=== PATIENT | female | born 1960 | race Caucasian/White ===

== ENCOUNTER 2019-04-19 13:50 | Inpatient (IN) | payer OTHER ==
--- NOTE | 2019-04-19 13:53 | PDOC ---
History of Present Illness - General Chief Complaint: Bite Stated Complaint: DOG BITE Time Seen by Provider: 04/19/19 13:52 - History of Present Illness Initial Comments: 04/19/19 14:23 58f with h/o hypercholesterolemia presents following dog bite to the L 2nd and 3rd finger last night at 6pm. She spread neosporin over the wound ad went to sleep but this morning the wound looked worse over the 3rd finger and she's unable to bend her finger. There are small puncture wounds over the dorsal and ventral surfaces. The 3rd finger is tense and swollen with limited mobility. Patient denies fever, chills, rashes or pruritus Past History - Past Medical History Allergies/Adverse Reactions: Allergies Allergy/AdvReac Type Severity Reaction Status Date / Time No Known Allergies Allergy Verified 04/19/19 13:51 Home Medications: Ambulatory Orders Atorvastatin Ca [Lipitor] 10 mg PO HS 04/19/19 Anemia: No Asthma: No Cancer: No Cardiac Disorders: Yes (MVP) CVA: No COPD: No CHF: No Dementia: No Diabetes: No GI Disorders: No Disorders: No HTN: No Hypercholesterolemia: Yes Liver Disease: No Seizures: No Thyroid Disease: No - Surgical History Abdominal Surgery: No Appendectomy: No Cardiac Surgery: No Cholecystectomy: No Lung Surgery: No Neurologic Surgery: No Orthopedic Surgery: No - Suicide/Smoking/Psychosocial Hx Smoking History: Never smoked Have you smoked in the past 12 months: No Hx Alcohol Use: Yes Drug/Substance Use Hx: No Substance Use Type: Alcohol Hx Substance Use Treatment: No Review of Systems - Review of Systems Able to Perform ROS?: Yes Is the patient limited Polish proficient: No Constitutional: No: Symptoms Reported HEENTM: No: Symptoms Reported Respiratory: No: Symptoms reported Cardiac (ROS): No: Symptoms Reported ABD/GI: No: Symptoms Reported : No: Symptoms Reported Musculoskeletal: No: Symptoms Reported Integumentary: Yes: See HPI Neurological: No: Symptoms reported All Other Systems: Reviewed and Negative *Physical Exam - Physical Exam General Appearance: Yes: Nourished, Appropriately Dressed, Apparent Distress Respiratory/Chest: positive: Lungs Clear, Normal Breath Sounds. negative: Chest Tender, Respiratory Distress Cardiovascular: positive: Regular Rhythm, Regular Rate, S1, S2 Gastrointestinal/Abdominal: positive: Normal Bowel Sounds, Flat, Soft. negative : Tender Extremity: positive: Other (swollen, hot and eryhtmatous finger with puncture wounds, passive tenderness along the flexor tendon on entension. ) ED Treatment Course - LABORATORY CBC & Chemistry Diagram: 04/19/19 14:20 04/19/19 14:20 Medical Decision Making - Medical Decision Making 04/19/19 15:13 Patient has likely infectious tenosynovitis secondary to dog bite from yesterday. Will start IV Unasyn -Vanco and get hand surgery consult. No Osteomyelitis on xray appreciated. 04/19/19 18:31 Ortho will see and follow the patient. Patient admitted to hospitalist. *DC/Admit/Observation/Transfer Diagnosis at time of Disposition: Infectious tenosynovitis - Discharge Dispostion Condition at time of disposition: Stable Decision to Admit order: Yes - Referrals - Patient Instructions - Post Discharge Activity
[2019-04-19] MEDS ORDERED: AMPICILLIN NA/SULBACTAM NA 3 GM in SODIUM CHLORIDE 100 ML IVPB ONE (14:08)
[2019-04-19] MEDS ORDERED: VANCOMYCIN 1 GM in D5W (PRE-DOCKED) 1,000 MG/250 ML IVPB ONE (14:19)
[2019-04-19] MEDS ORDERED: VANCOMYCIN 1,000 MG VIAL (RESTRICTED TO ID ONLY) ONE (14:26)
--- NOTE | 2019-04-19 14:34 | PDOC ---
Attending Attestation - Resident Resident Name: David Molina - ED Attending Attestation I have performed the following: I have examined & evaluated the patient, The case was reviewed & discussed with the resident, I agree w/resident's findings & plan - HPI HPI: 04/19/19 14:30 58-year-old female with history of high cholesterol presents with right middle finger pain and swelling status post dog bite last night. Patient's own dog bit her right third and fourth digits, over the course of the night developed increasing pain and swelling to her third digit, presents for evaluation. Difficulty ranging her finger joints secondary to pain and swelling, no fevers or chills or sensory loss. - Physicial Exam PE: 04/19/19 14:31 Vital signs normal, temperature 90.9 Right hand: Sealed abrasion/puncture nix on both the dorsal and palmar aspect of the right third digit over the distal middle phalanx, the palmar aspect has slight purulent drainage. There are circumferential swelling around the entire right middle finger, there is tenderness along the flexor tendon, there is pain with passive extension. Otherwise brisk cap refill, sensory intact. Right fourth digit has abrasions without evidence of swelling or infection. - Medical Decision Making 04/19/19 14:32 58-year-old female status post dog bite to right third digit with signs and symptoms concerning for deep tissue/flexor tendon infection. No systemic signs or evidence of SIRS, neurovascularly intact at this time. will need hand consult for evaluation of possible debridement IV antibiotics check labs for admission xray to r/o foreign body tetanus utd as of 3 years ago. 04/19/19 15:47 on my prelim review, sts on xray without FB. labs wnl. received iv abx. Dr. Mane consulted for Hand, will see patient
[2019-04-19 14:52] LABS: MCH 31.3 pg (25.7-33.7)
[2019-04-19 14:56] LABS: BASO % 0.5 % (0-2.0); EOS % 0.3 % (0-4.5); HEMATOCRIT 40.3 % (32.4-45.2); HEMOGLOBIN 13.6 GM/dl (10.7-15.3); LYMPH % 22.1 % (8-40); MCHC 33.9 g/dl (32.0-36.0); MEAN CELL VOLUME 92.3 fl (80-96); MEAN PLT VOLUME 8.2 fl (7.5-11.1); MONO % 6.4 % (3.8-10.2); NEUT % 70.7 % (42.8-82.8); PLATELET COUNT 356 K/MM3 (134-434); RBC 4.37 M/mm3 (3.60-5.2); RDW 11.5 % (11.6-15.6); WHITE BLOOD COUNT 9.4 K/mm3 (4.0-10.8)
[2019-04-19 14:59] LABS: ALBUMIN 4.2 g/dl (3.4-5.0); BILIRUBIN,TOTAL 1.1 mg/dl (0.2-1); CALCIUM 9.3 mg/dl (8.5-10); CREATININE 0.6 mg/dl (0.55-1.3); POTASSIUM 3.8 mmol/L (3.5-5.1); TOT PROT 7.2 g/dl (6.4-8.2)
[2019-04-19] MEDS ORDERED: AMPICILLIN NA/SULBACTAM NA 3 GM VIAL ONE (15:02)
[2019-04-19] MEDS ORDERED: morphine CARPU-JECT 4 MG/1 ML DISP.SYRIN IVPUSH ONE (16:23)
[2019-04-19] MEDS ORDERED: morphine SULFATE 4 MG/ML VIAL ONE (16:33)
[2019-04-19] MEDS ORDERED: IBUPROFEN 400 MG TABLET (FP) PO PRN (16:47)
--- NOTE | 2019-04-19 16:55 | HP ---
Admitting History and Physical - Primary Care Physician PCP: Emily Penn - Admission Chief Complaint: Rt Hand pain and swelling History of Present Illness: 58 yrs old f healthy no significant PMH except Hypercholasterolemia today present with Left Hand pain swelling , yesterday she was bitten by a dog L 2nd and 3rd finger , self treated with Neosporin Ont today am noticed pain , swelling over the wound , unable do passive flexion due to pain and swelling . There are small puncture wounds over the dorsal and ventral surfaces. The 3rd finger is tense and swollen with limited mobility. Patient denies fever, chills , rashes or pruritus, in the Ed received IV unasyn and vancomycin , hand surgery is consulted admitted for IV abx and further management. History Source: Patient - Past Medical History Cardiovascular: Yes: Hyperlipdemia ...LMP: 12/30/11 - Smoking History Smoking history: Never smoked Have you smoked in the past 12 months: No - Alcohol/Substance Use Hx Alcohol Use: Yes Home Medications - Allergies Allergies/Adverse Reactions: Allergies Allergy/AdvReac Type Severity Reaction Status Date / Time No Known Allergies Allergy Verified 04/19/19 13:51 - Home Medications Home Medications: Ambulatory Orders Atorvastatin Ca [Lipitor] 10 mg PO HS 04/19/19 Family Disease History - Family Disease History Family History: Unremarkable Review of Systems - Review of Systems Constitutional: denies: Chills, Diaphoresis, Fever, Lethargy Eyes: denies: Blind Spots, Blurred Vision HENT: denies: Difficult Swallowing, Ear Discharge Neck: denies: Decreased ROM, Lumps, Pain on Movement Cardiovascular: denies: Chest Pain, Edema, Palpitations Respiratory: denies: Cough, Exercise Intolerance Gastrointestinal: denies: Abdominal Pain, Bloating Genitourinary: denies: Burning, Discharge, Dysuria Integumentary: reports: Blister, Change in Color (L 2 and 3rd Finger) Neurological: denies: Change in LOC, Change in Speech, Confusion Hematology/Lymphatic: denies: Easily Bruised, Excessive Bleeding Psychiatric: denies: Altered Sleep Pattern, Anxiety, Depression Physical Examination Vital Signs: Vital Signs Temperature 99 F 04/19/19 13:51 Pulse Rate 89 04/19/19 13:51 Respiratory Rate 16 04/19/19 13:51 Blood Pressure 137/93 04/19/19 13:51 O2 Sat by Pulse Oximetry (%) 99 04/19/19 13:51 Young F not in distress HEENT: Mm moist no anemia NECK; No JVd No bruit CHEST: CTA B/L CVS; s1S2 R no m/g/r ABD: No distention, non tender Bs + EXT: No edema feet, no calf tenderness Rt UE:In dressing As per Hand surgery note: small superficial wound approximately 5 mm along the volar aspect of the ring finger along the middle phalanx. There is mild swelling here but no surrounding erythema. There is a approximately 1 cm wound along the volar aspect of the long finger just proximal to the DIP joint. There is moderate swelling here and surrounding erythema extending from the distal phalanx to the proximal phalanx. 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 BMP, Hand surgery consult is called,Rt hand elevation, NSAID for pain , tylenol for fever. Code(s): L03.114 - CELLULITIS OF LEFT UPPER LIMB (2) Dog bite of hand Code(s): S61.459A - OPEN BITE OF UNSPECIFIED HAND, INITIAL ENCOUNTER; W54.0XXA - BITTEN BY DOG, INITIAL ENCOUNTER Qualifiers: Encounter type: initial encounter (3) Hypercholesteremia Assessment/Plan: cont Statin Code(s): E78.00 - PURE HYPERCHOLESTEROLEMIA, UNSPECIFIED
[2019-04-19] MEDS ORDERED: AMPICILLIN NA/SULBACTAM NA 3 GM VIAL IVPB SCH (17:00)
[2019-04-19] MEDS ORDERED: ONDANSETRON 4 MG/2 ML VIAL IVPUSH PRN (17:00)
[2019-04-19] MEDS ORDERED: HYDROmorphone HCl 2 MG/ML VIAL IVPB PRN (17:00)
--- NOTE | 2019-04-19 18:19 | CONSULT ---
Consult Consult Specialty:: orthopedics/hand surgery - History of Present Illness Chief Complaint: dog bite right hand History of Present Illness: 58-year-old female presents to the emergency department status post right hand dog bite at approximately 6 PM yesterday. She states after the bite she washed the hand under cold water and today the finger was getting red and swollen and she came to the emergency department. She was started on IV antibiotics. She states the hand feels about the same since earlier this morning. The pain is worse with use of the hand and moving the fingers and better with rest. She denies any fevers or chills - History Source History Provided By: Patient, Medical Record - Past Medical History Cardio/Vascular: Yes: Hyperlipdemia ...LMP: 12/30/11 - Alcohol/Substance Use Hx Alcohol Use: Yes - Smoking History Smoking history: Never smoked Have you smoked in the past 12 months: No Home Medications - Allergies Allergies/Adverse Reactions: Allergies Allergy/AdvReac Type Severity Reaction Status Date / Time No Known Allergies Allergy Verified 04/19/19 13:51 - Home Medications Home Medications: Ambulatory Orders Atorvastatin Ca [Lipitor] 10 mg PO HS 04/19/19 Review of Systems - Review of Systems Constitutional: reports: No Symptoms Eyes: reports: No Symptoms HENT: reports: No Symptoms Neck: reports: No Symptoms Cardiovascular: reports: No Symptoms Respiratory: reports: No Symptoms Gastrointestinal: reports: No Symptoms Genitourinary: reports: No Symptoms Breasts: reports: No Symptoms Reported Musculoskeletal: reports: No Symptoms Integumentary: reports: Erythema, Wound Neurological: reports: No Symptoms Endocrine: reports: No Symptoms Hematology/Lymphatic: reports: No Symptoms Psychiatric: reports: No Symptoms Physical Exam Vital Signs: Vital Signs Temperature 99.1 F 04/19/19 17:23 Pulse Rate 72 04/19/19 17:23 Respiratory Rate 18 04/19/19 17:23 Blood Pressure 122/64 04/19/19 17:23 O2 Sat by Pulse Oximetry (%) 98 04/19/19 17:23 Constitutional: Yes: Well Nourished, No Distress, Calm HENT: Yes: Atraumatic, Normocephalic Musculoskeletal: Yes: Other (right hand: There is a small superficial wound approximately 5 mm along the volar aspect of the ring finger along the middle phalanx. There is mild swelling here but no surrounding erythema. There is a approximately 1 cm wound along the volar aspect of the long finger just proximal to the DIP joint. There is moderate swelling here and surrounding erythema extending from the distal phalanx to the proximal phalanx. There is no drainage. There is no palpable abscess. She is able to fully extend the finger with minimal discomfort. There is no tenderness over the flexor tendon sheath. FDS and FDP are intact. Neurovascularly intact. No felon) Labs: CBC, BMP 04/19/19 14:20 04/19/19 14:20 Imaging - Results X-ray: Report Reviewed, Image Reviewed (x-ray reviewed of the right hand shows no fracture or dislocation) Assessment/Plan right hand dog bite I discussed today's findings and treatment options with the patient. I recommended splint immobilization of the hand and I placed her into a splint today. She will elevate the hand overnight. She is being admitted for IV antibiotics. she has any worsening symptoms or develops any evidence of flexor tenosynovitis I have discussed the possibility of needing an incision and drainage procedure. No surgical intervention indicated at this time. Dr. Mane also independently examined the patient and we will reexamine tomorrow morning. She will continue the IV antibiotics per medicine.
[2019-04-19] MEDS: ATORVASTATIN CA 10 MG TABLET (FP) PO SCH (22:52)
[2019-04-19] MEDS: AMPICILLIN NA/SULBACTAM NA 3 GM in SODIUM CHLORIDE 100 ML IVPB SCH (22:54)
[2019-04-20] MEDS: AMPICILLIN NA/SULBACTAM NA 3 GM in SODIUM CHLORIDE 100 ML IVPB SCH ×3 (05:27→18:27)
--- NOTE | 2019-04-20 07:30 | PN ---
Progress Note, Physician History of Present Illness: she feels well. she states the finger is feeling better. - Current Medication List Current Medications: Active Medications Ampicillin Sodium/Sulbactam Sodium (Unasyn -) 3 gm IVPB ONCE JESI Last Admin: 04/19/19 17:15 Dose: Not Given Atorvastatin Calcium (Lipitor -) 10 mg PO HS JESI Last Admin: 04/19/19 22:52 Dose: 10 mg Hydromorphone HCl (Dilaudid Vial -) 1 mg IVPB Q6H PRN Last Admin: 04/19/19 22:53 Dose: 1 mg Ampicillin Sodium/Sulbactam (Sodium 3 gm/ Sodium Chloride) 100 mls @ 200 mls/ hr IVPB Q6H JESI Last Admin: 04/20/19 05:27 Dose: 200 mls/hr Ibuprofen (Motrin -) 400 mg PO Q8H PRN PRN Reason: FEVER Ondansetron HCl (Zofran Injection) 4 mg IVPUSH Q6H PRN PRN Reason: NAUSEA Last Admin: 04/19/19 23:27 Dose: 4 mg - Objective Vital Signs: Vital Signs Temperature 98.2 F 04/20/19 06:00 Pulse Rate 63 04/20/19 06:00 Respiratory Rate 18 04/20/19 06:00 Blood Pressure 113/64 04/20/19 06:00 O2 Sat by Pulse Oximetry (%) 95 04/20/19 06:00 Constitutional: Yes: Well Nourished, No Distress, Calm Musculoskeletal: Yes: Other (Swelling has improved. Erythema has receded to the PIP from the MCP joint. There is mild TTP along the wound volarly. No drainage. She is able to fully extend the finger with minimal discomfort. Flexor tendons intact. No evidence of flexor tenosynovitis. NVID.) Assessment/Plan Right hand cellulitis -Continue IV ABX -No surgical intervention at this time -Regular diet -will recheck later today -Pt was also seen by Dr. Mane
[2019-04-20 07:52] LABS: BASO % 0.4 % (0-2.0); EOS % 0.1 % (0-4.5); HEMATOCRIT 35.7 % (32.4-45.2); HEMOGLOBIN 12.2 GM/dl (10.7-15.3); LYMPH % 16.1 % (8-40); MCH 31.5 pg (25.7-33.7); MCHC 34.3 g/dl (32.0-36.0); MEAN CELL VOLUME 91.9 fl (80-96); MEAN PLT VOLUME 8.4 fl (7.5-11.1); MONO % 5.4 % (3.8-10.2); PLATELET COUNT 253 K/MM3 (134-434); RBC 3.88 M/mm3 (3.60-5.2); RDW 11.6 % (11.6-15.6); WHITE BLOOD COUNT 7.7 K/mm3 (4.0-10.8)
[2019-04-20 07:53] LABS: CALCIUM 9.1 mg/dl (8.5-10); CREATININE 0.4 mg/dl (0.55-1.3); POTASSIUM 4.1 mmol/L (3.5-5.1)
--- NOTE | 2019-04-20 09:55 | PN ---
Progress Note (short form) - Note Progress Note: ID CONSULT DICTATED CELLULITIS ? EARLY ST ABSCESS/ TENOSYNOVITIS R 3RD DIGIT S/P DOG BITE OBTAIN BC SURGICAL CONSULT APPRECIATED CONTINUE UNASYN
--- NOTE | 2019-04-20 11:09 | CONS ---
INFECTIOUS DISEASE CONSULTATION DATE OF CONSULTATION: DATE OF DICTATION: 04/20/2019 The patient is a 58-year-old healthy female who is evaluated for cellulitis of the right hand. The patient was admitted to the hospital on April 19, 2019, after sustaining a dog bite to her left 2nd and 3rd . The incident occurred on the evening prior to admission. She was bitten by her own dog. She has subsequently developed worsening erythema and swelling of the left 3rd digit. She was admitted to the hospital where she was seen in consultation by Orthopedics. She was empirically treated with Unasyn. She denies any associated fever or chills. No reports of any purulent drainage from the puncture wounds. PAST MEDICAL HISTORY: Positive for hyperlipidemia. She is non-diabetic. ALLERGIES: No known allergies. MEDICATIONS: Include Unasyn, Lipitor, hydromorphone, ibuprofen, and vancomycin. SOCIAL HISTORY: She lives at home with her significant other. She is a nonsmoker. Occasional EtOH. SYSTEMS REVIEW: Neurologic: No loss of consciousness, seizure activity, focal weakness. Cardiac: Negative chest pain or palpitations. Respiratory: Negative cough or sputum production. Gastrointestinal: Negative vomiting or diarrhea. Genitourinary: Negative for urinary tract infection. LABORATORY DATA: White count 7.7; neutrophils 78, lymphocytes 16, monocytes 5; hematocrit 35.7; platelets 253. Creatinine 0.4. PHYSICAL EXAMINATION: General: The patient is awake and alert, in no acute distress. Vital Signs: Temperature 98.2; blood pressure 113/64; pulse 64, regular; respirations 18 per minute. HEENT: Sclerae anicteric. Heart: Sounds S1, S2. No murmur. Lungs: Clear. Abdomen: Soft and nontender. Extremities: Negative for pedal edema. Right Upper Extremity: There is diffuse swelling of the right 3rd digit, extending to the PIP joint. There is soft tissue swelling and erythema, primarily on the flexor aspect of the digit with a puncture wound. There is no expressible drainage. There is no fluctuance or crepitus. No lymphangitic streaking. No palpable epitrochlear or axillary adenopathy. A smaller puncture wound is present on the right 2nd digit with minimal swelling and no erythema. IMPRESSION: 1. Cellulitis, rule out early soft tissue abscess/tenosynovitis, right 3rd digit. 2. Status post dog bite injury. Obtain blood cultures. Surgical consultation appreciated. Continue empiric Unasyn 3 g IV piggyback every 6 hours. Elevation. Analgesics. Case discussed with patient's present at the time of the examination. Thank you for the kind referral. CHARLOTTE LYLE M.D. JOHNSON/[id number]
--- NOTE | 2019-04-20 14:21 | PN ---
Progress Note, Physician Chief Complaint: infected dog bite to right 2nd/3rd digit History of Present Illness: 58-year-old female with h/o HLD presents to the emergency department status post right hand dog bite on 04/18. - Current Medication List Current Medications: Active Medications Atorvastatin Calcium (Lipitor -) 10 mg PO HS JESI Last Admin: 04/19/19 22:52 Dose: 10 mg Hydromorphone HCl (Dilaudid Vial -) 1 mg IVPB Q6H PRN Last Admin: 04/19/19 22:53 Dose: 1 mg Ampicillin Sodium/Sulbactam (Sodium 3 gm/ Sodium Chloride) 100 mls @ 200 mls/ hr IVPB Q6H JESI Last Admin: 04/20/19 11:56 Dose: 200 mls/hr Ibuprofen (Motrin -) 400 mg PO Q8H PRN PRN Reason: FEVER Ondansetron HCl (Zofran Injection) 4 mg IVPUSH Q6H PRN PRN Reason: NAUSEA Last Admin: 04/19/19 23:27 Dose: 4 mg - Objective Vital Signs: Vital Signs Temperature 98.2 F 04/20/19 06:00 Pulse Rate 63 04/20/19 06:00 Respiratory Rate 18 04/20/19 08:45 Blood Pressure 113/64 04/20/19 06:00 O2 Sat by Pulse Oximetry (%) 95 04/20/19 08:45 Constitutional: Yes: No Distress, Calm Eyes: Yes: Conjunctiva Clear, EOM Intact, PERRL HENT: Yes: Atraumatic, Normocephalic Neck: Yes: Supple, Trachea Midline Cardiovascular: Yes: Regular Rate and Rhythm Respiratory: Yes: Regular, CTA Bilaterally Gastrointestinal: Yes: Normal Bowel Sounds, Soft ...Rectal Exam: Yes: Deferred Musculoskeletal: Yes: WNL Extremities: Yes: WNL, Other (Right hand: +2 swelling right middle finger with scattered lacerations/puncture wounds 3rd finger +1 edema, with scattered puncture wounds) Peripheral Pulses WNL: Yes Peripheral Pulses: Left Radial: 2+, Right Radial: 2+ Integumentary: Yes: Erythema (right 2nd and 3rd digits), Laceration Wound/Incision: Yes: Other (tracking to affected digits, hands and remaining fingers are spared (no erythema or swelling)) Neurological: Yes: Alert, Oriented ...Motor Strength: WNL Psychiatric: Yes: WNL, Alert, Oriented Labs: CBC, BMP 04/20/19 06:53 04/20/19 06:53 - ....Imaging X-ray: Report Reviewed (X-ray right hand 04/19/2019 [id number] RAD/HAND- RIGHT Left hand/third digit: Dog bite. 3 views of the right third digit reveal swelling but no sign of fracture or subluxation and no sign of blastic or lytic changes. Soft tissue air or foreign body is not seen. If symptoms persist , further imaging and orthopedic consultation may be appropriate. Reported By: Cristobal Muñoz MD 04/19/19 2010) Problem List - Problems (1) Prophylactic measure Assessment/Plan: pt ambulatory bowel regimen with dilaudid for pain Code(s): Z29.9 - ENCOUNTER FOR PROPHYLACTIC MEASURES, UNSPECIFIED (2) Hypercholesteremia Assessment/Plan: lipitor 10mg qhs low fat diet Code(s): E78.00 - PURE HYPERCHOLESTEROLEMIA, UNSPECIFIED (3) Dog bite of hand Assessment/Plan: ID following patient, recs appreciated hand surgeon following, recs appreciated continue with ampicillin PRN dilaudid and motrin for pain serial exam to assess for compartment syndrome or worsening infection follow up blood cultures Code(s): S61.459A - OPEN BITE OF UNSPECIFIED HAND, INITIAL ENCOUNTER; W54.0XXA - BITTEN BY DOG, INITIAL ENCOUNTER Qualifiers: Encounter type: initial encounter Impression/Plan Impression/Plan: Dispo: home when cleared by surgery Code status: Full code Visit type - Emergency Visit Emergency Visit: Yes ED Registration Date: 04/19/19 Care time: The patient presented to the Emergency Department on the above date and was hospitalized for further evaluation of their emergent condition. - New Patient This patient is new to me today: Yes Date on this admission: 04/20/19 - Critical Care Critical Care patient: No - Discharge Referral Referred to [facility] Med [facility].: No
[2019-04-20] MEDS ORDERED: SENNOSIDES 8.6MG TABLET (FP) PO PRN (14:43)
[2019-04-20] MEDS ORDERED: DOCUSATE SODIUM 100 MG CAPSULE (FP) PO PRN (14:43)
[2019-04-20] MEDS: ATORVASTATIN CA 10 MG TABLET (FP) PO SCH (21:29)
[2019-04-20] MEDS ORDERED: AMPICILLIN NA/SULBACTAM NA 3 GM VIAL ONE (23:52)
[2019-04-20] MEDS ORDERED: SODIUM CHLORIDE 100 ML IVPB ONE (23:53)
[2019-04-21] MEDS: AMPICILLIN NA/SULBACTAM NA 3 GM in SODIUM CHLORIDE 100 ML IVPB SCH ×4 (00:10→18:05)
[2019-04-21] MEDS ORDERED: AMPICILLIN NA/SULBACTAM NA 3 GM VIAL ONE ×3 (06:45→23:23)
[2019-04-21] MEDS ORDERED: SODIUM CHLORIDE 100 ML IVPB ONE ×3 (06:46→23:23)
[2019-04-21 07:25] LABS: HEMATOCRIT 38.5 % (32.4-45.2); HEMOGLOBIN 12.6 GM/dl (10.7-15.3); MCH 30.8 pg (25.7-33.7); MCHC 32.7 g/dl (32.0-36.0); MEAN CELL VOLUME 94.4 fl (80-96); MEAN PLT VOLUME 8.1 fl (7.5-11.1); PLATELET COUNT 273 K/MM3 (134-434); RBC 4.08 M/mm3 (3.60-5.2); WHITE BLOOD COUNT 6.6 K/mm3 (4.0-10.8)
--- NOTE | 2019-04-21 10:50 | PN ---
Progress Note, Physician History of Present Illness: AWAKE IN BED C/O R HAND PAIN NO C/O FEVER/ CHILLS AFEBRILE WBC WNL BC PENDING - Current Medication List Current Medications: Active Medications Atorvastatin Calcium (Lipitor -) 10 mg PO HS [facility] Last Admin: 04/20/19 21:29 Dose: 10 mg Docusate Sodium (Colace -) 100 mg PO BID PRN PRN Reason: CONSTIPATION Hydromorphone HCl (Dilaudid Vial -) 1 mg IVPB Q6H PRN Last Admin: 04/19/19 22:53 Dose: 1 mg Ampicillin Sodium/Sulbactam (Sodium 3 gm/ Sodium Chloride) 100 mls @ 200 mls/ hr IVPB Q6H JESI Last Admin: 04/21/19 06:51 Dose: 200 mls/hr Ibuprofen (Motrin -) 400 mg PO Q8H PRN PRN Reason: FEVER Ondansetron HCl (Zofran Injection) 4 mg IVPUSH Q6H PRN PRN Reason: NAUSEA Last Admin: 04/19/19 23:27 Dose: 4 mg Senna (Senna -) 2 tab PO HS PRN PRN Reason: CONSTIPATION - Objective Vital Signs: Vital Signs Temperature 98.1 F 04/21/19 05:00 Pulse Rate 76 04/21/19 05:00 Respiratory Rate 18 04/21/19 08:00 Blood Pressure 148/73 04/21/19 05:00 O2 Sat by Pulse Oximetry (%) 99 04/21/19 08:00 Constitutional: Yes: No Distress Eyes: Yes: Conjunctiva Clear Cardiovascular: Yes: Regular Rate and Rhythm, S1, S2 Respiratory: Yes: CTA Bilaterally Gastrointestinal: Yes: Normal Bowel Sounds, Soft. No: Tenderness Extremities: Yes: Other (+ SWELLING OF R 3RD DIGIT; ERYTHEMA PALMAR ASPECT BETWEEN DIP/PIP; NO DRAINAGE) Labs: CBC, BMP 04/21/19 07:15 04/20/19 06:53 Assessment/Plan CELLULITIS R 3RD DIGIT S/P DOG BITE R/O ST ABSCESS/ TENOSYNOVITIS CONTINUE UNASYN ELEVATION SURGICAL F/U
--- NOTE | 2019-04-21 12:43 | PN ---
Physical Exam: SUBJECTIVE: Patient seen and examined at bedside. Denies fever, sweats, chills. Finger was aspirated ~1 hour ago. Pain presently well-managed. OBJECTIVE: Vital Signs Period Temp Pulse Resp BP Sys/Quiñonez Pulse Ox Last 24 Hr 98.1 F-98.9 F 68-79 16-18 105-148/62-73 96-100 GENERAL: The patient is awake, alert, and fully oriented, in no acute distress. RIGHT MIDDLE FINGER: Circumferential swelling, areas of ecchymoses, pus oozing from I&D site Laboratory Results - last 24 hr 04/21/19 04/21/19 07:15 07:15 WBC 6.6 RBC 4.08 Hgb 12.6 Hct 38.5 MCV 94.4 MCH 30.8 MCHC 32.7 RDW 12.0 Plt Count 273 MPV 8.1 Magnesium 1.9 Active Medications Generic Name Dose Route Start Last Admin Trade Name Freq PRN Reason Stop Dose Admin Atorvastatin Calcium 10 mg 04/19/19 22:00 04/20/19 21:29 Lipitor - PO 10 mg HS JESI Administration Docusate Sodium 100 mg 04/20/19 14:43 Colace - PO BID PRN CONSTIPATION Hydromorphone HCl 1 mg 04/19/19 17:00 04/19/19 22:53 Dilaudid Vial - IVPB 1 mg Q6H PRN Administration Ampicillin Sodium/Sulbactam 100 mls @ 200 mls/hr 04/20/19 12:00 04/21/19 11: 34 Sodium 3 gm/ Sodium Chloride IVPB 200 mls/hr Q6H JESI Administration Ibuprofen 400 mg 04/19/19 16:47 Motrin - PO Q8H PRN FEVER Ondansetron HCl 4 mg 04/19/19 17:00 04/19/19 23:27 Zofran Injection IVPUSH 4 mg Q6H PRN Administration NAUSEA Senna 2 tab 04/20/19 14:43 Senna - PO HS PRN CONSTIPATION Microbiology 04/20/19 11:25 Blood - Peripheral Venous Blood Culture - Preliminary NO GROWTH OBTAINED AFTER 24 HOURS, INCUBATION TO CONTINUE FOR 4 DAYS. ASSESSMENT/PLAN 58 year-old female with a PMH significant for HLD. Admitted for cellulitis of right middle finger s/p dog bite. Cellulitis right middle finger s/p dog bite --bit by own dog, up to date on vaccinations --ortho aspirated small amount of pus today; still oozing after procedure --afebrile, no leukocytosis --continue Unasyn (day #2) --elevate hand --Tylenol, motrin PRN --surgery following Hyperlipidemia --continue Lipitor FEN Fluids: PO intake adequate Electrolytes: replete as indicated Nutrition: regular diet DVT prophylaxis: lovenox Dispo: continues to require inpatient care. Full code. Visit type - Emergency Visit Emergency Visit: Yes ED Registration Date: 04/19/19 Care time: The patient presented to the Emergency Department on the above date and was hospitalized for further evaluation of their emergent condition. - New Patient This patient is new to me today: Yes Date on this admission: 04/21/19 - Critical Care Critical Care patient: No
--- NOTE | 2019-04-21 13:11 | PN ---
Progress Note, Physician History of Present Illness: she states the finger is feeling better today. She has been elevating the finger. She still has some pain and soreness volarly near the DIP joint - Current Medication List Current Medications: Active Medications Atorvastatin Calcium (Lipitor -) 10 mg PO HS JESI Last Admin: 04/20/19 21:29 Dose: 10 mg Docusate Sodium (Colace -) 100 mg PO BID PRN PRN Reason: CONSTIPATION Hydromorphone HCl (Dilaudid Vial -) 1 mg IVPB Q6H PRN Last Admin: 04/19/19 22:53 Dose: 1 mg Ampicillin Sodium/Sulbactam (Sodium 3 gm/ Sodium Chloride) 100 mls @ 200 mls/ hr IVPB Q6H JESI Last Admin: 04/21/19 11:34 Dose: 200 mls/hr Ibuprofen (Motrin -) 400 mg PO Q8H PRN PRN Reason: FEVER Ondansetron HCl (Zofran Injection) 4 mg IVPUSH Q6H PRN PRN Reason: NAUSEA Last Admin: 04/19/19 23:27 Dose: 4 mg Senna (Senna -) 2 tab PO HS PRN PRN Reason: CONSTIPATION - Objective Vital Signs: Vital Signs Temperature 98.2 F 04/21/19 09:00 Pulse Rate 68 04/21/19 09:00 Respiratory Rate 17 04/21/19 09:00 Blood Pressure 117/64 04/21/19 09:00 O2 Sat by Pulse Oximetry (%) 98 04/21/19 09:00 Constitutional: Yes: Well Nourished, No Distress, Calm Musculoskeletal: Yes: Other (right long finger: Erythema has improved. There is moderate swelling along the volar aspect of the finger mostly along the middle phalanx. There appears to be a head forming to a small abscess here. She has limited motion of the DIP joint but near full motion of the PIP in full motion of the MCP joint of the long finger. The remainder of the fingers have full motion. Flexor and extensor tendons are intact. No evidence of flexor tenosynovitis. She is able to fully extend the long finger.) Labs: CBC, BMP 04/21/19 07:15 04/20/19 06:53 Assessment/Plan right long finger cellulitis status post dog bite I discussed today's findings and treatment options with the patient. Together decided proceed with Incision and drainage at bedside. procedure right long finger incision and drainage: The finger was double prepped with alcohol swabs which was allowed to fully dry. Using sterile technique an 18-gauge needle was introduced into the area of maximal tenderness and head of the possible abscess. a proximally 1/2 cc of pus was extracted along with some serosanguineous fluid. The finger was decompressed after the procedure and a sterile bandage was placed. The patient tolerated the procedure well. Post aspiration instructions were given. She will continue to elevate the finger I recommended 1 more day of IV antibiotics and Dr. Mane also believe she would benefit from continued IV antibiotics. Likely convert to oral antibiotics and discharge tomorrow.
[2019-04-21] MEDS ORDERED: IBUPROFEN 400 MG TABLET (FP) PO PRN (14:47)
[2019-04-21] MEDS ORDERED: ACETAMINOPHEN 325 MG TABLET (FP) PO PRN (14:48)
[2019-04-21] MEDS: ENOXAPARIN NA (PORCINE) 40 MG/0.4 ML DISP.SYRIN SQ SCH (15:48)
[2019-04-21] MEDS: ATORVASTATIN CA 10 MG TABLET (FP) PO SCH (21:07)
[2019-04-21] MEDS ORDERED: PT OWN MED DRAWER 7, Y5N ONE (23:24)
[2019-04-22] MEDS: AMPICILLIN NA/SULBACTAM NA 3 GM in SODIUM CHLORIDE 100 ML IVPB SCH ×3 (00:08→12:45)
[2019-04-22 07:47] LABS: HEMATOCRIT 37.9 % (32.4-45.2); HEMOGLOBIN 12.8 GM/dl (10.7-15.3); LYMPH % 40.1 % (8-40); MCH 31.2 pg (25.7-33.7); MCHC 33.8 g/dl (32.0-36.0); MEAN CELL VOLUME 92.1 fl (80-96); MEAN PLT VOLUME 8.6 fl (7.5-11.1); MONO % 6.7 % (3.8-10.2); NEUT % 50.2 % (42.8-82.8); PLATELET COUNT 281 K/MM3 (134-434); RBC 4.12 M/mm3 (3.60-5.2); RDW 11.8 % (11.6-15.6); WHITE BLOOD COUNT 5.7 K/mm3 (4.0-10.8)
[2019-04-22 07:52] LABS: ALBUMIN 3.5 g/dl (3.4-5.0); CALCIUM 9.4 mg/dl (8.5-10); CREATININE 0.4 mg/dl (0.55-1.3); POTASSIUM 4.1 mmol/L (3.5-5.1); TOT PROT 6.1 g/dl (6.4-8.2)
[2019-04-22] MEDS: ENOXAPARIN NA (PORCINE) 40 MG/0.4 ML DISP.SYRIN SQ SCH (09:40)
--- NOTE | 2019-04-22 09:50 | PN ---
Physical Exam: SUBJECTIVE: Patient seen and examined OBJECTIVE: Vital Signs Period Temp Pulse Resp BP Sys/Quiñonez Pulse Ox Last 24 Hr 98.3 F-98.5 F 61-77 17-19 123-137/65-77 96-100 GENERAL: The patient is awake, alert, and fully oriented, in no acute distress. HEAD: Normal with no signs of trauma. EYES: PERRL, extraocular movements intact, sclera anicteric, conjunctiva clear. No ptosis. ENT: Ears normal, nares patent, oropharynx clear without exudates, moist mucous membranes. NECK: Trachea midline, full range of motion, supple. LUNGS: Breath sounds equal, clear to auscultation bilaterally, no wheezes, no crackles, no accessory muscle use. HEART: Regular rate and rhythm, S1, S2 without murmur, rub or gallop. ABDOMEN: Soft, nontender, nondistended, normoactive bowel sounds, no guarding, no rebound, no hepatosplenomegaly, no masses. EXTREMITIES: 2+ pulses, warm, well-perfused, no edema. NEUROLOGICAL: Cranial nerves II through XII grossly intact. Normal speech, gait not observed. PSYCH: Normal mood, normal affect. SKIN: Warm, dry, normal turgor, no rashes or lesions noted Laboratory Results - last 24 hr 04/22/19 04/22/19 07:15 07:15 WBC 5.7 RBC 4.12 Hgb 12.8 Hct 37.9 MCV 92.1 MCH 31.2 MCHC 33.8 RDW 11.8 Plt Count 281 MPV 8.6 Absolute Neuts (auto) 2.8 Neutrophils % 50.2 Lymphocytes % 40.1 H Monocytes % 6.7 Eosinophils % 2.0 Basophils % 1.0 Sodium 140 Potassium 4.1 Chloride 103 Carbon Dioxide 27 Anion Gap 10 BUN 11.0 Creatinine 0.4 L Est GFR (CKD-EPI)AfAm 134.00 Est GFR (CKD-EPI)NonAf 115.62 Random Glucose 89 Calcium 9.4 Magnesium 2.0 Total Bilirubin 1.0 AST 16 ALT 9 L Alkaline Phosphatase 45 D Total Protein 6.1 L Albumin 3.5 Active Medications Generic Name Dose Route Start Last Admin Trade Name Freq PRN Reason Stop Dose Admin Acetaminophen 650 mg 04/21/19 14:48 Tylenol - PO Q6H PRN FEVER Atorvastatin Calcium 10 mg 04/19/19 22:00 04/21/19 21:07 Lipitor - PO 10 mg HS JESI Administration Docusate Sodium 100 mg 04/20/19 14:43 Colace - PO BID PRN CONSTIPATION Enoxaparin Sodium 40 mg 04/21/19 14:45 04/22/19 09:40 Lovenox - SQ 40 mg DAILY JESI Administration Ampicillin Sodium/Sulbactam 100 mls @ 200 mls/hr 04/20/19 12:00 04/22/19 05: 33 Sodium 3 gm/ Sodium Chloride IVPB 200 mls/hr Q6H JESI Administration Ibuprofen 400 mg 04/21/19 14:47 04/22/19 09:39 Motrin - PO 400 mg Q8H PRN Administration PAIN LEVEL 1-5 Ondansetron HCl 4 mg 04/19/19 17:00 04/19/19 23:27 Zofran Injection IVPUSH 4 mg Q6H PRN Administration NAUSEA Senna 2 tab 04/20/19 14:43 Senna - PO HS PRN CONSTIPATION ASSESSMENT/PLAN:
--- NOTE | 2019-04-22 10:30 | PN ---
Progress Note, Physician History of Present Illness: S/P I&D R 3RD DIGIT 0.5 CC PUS DRAINED ? NO CULTURE SENT AWAKE IN BED LESS R HAND PAIN NO C/O FEVER/ CHILLS AFEBRILE WBC WNL BC NO GROWTH - Current Medication List Current Medications: Active Medications Acetaminophen (Tylenol -) 650 mg PO Q6H PRN PRN Reason: FEVER Atorvastatin Calcium (Lipitor -) 10 mg PO HS [facility] Last Admin: 04/21/19 21:07 Dose: 10 mg Docusate Sodium (Colace -) 100 mg PO BID PRN PRN Reason: CONSTIPATION Enoxaparin Sodium (Lovenox -) 40 mg SQ DAILY [facility] Last Admin: 04/22/19 09:40 Dose: 40 mg Ampicillin Sodium/Sulbactam (Sodium 3 gm/ Sodium Chloride) 100 mls @ 200 mls/ hr IVPB Q6H [facility] Last Admin: 04/22/19 05:33 Dose: 200 mls/hr Ibuprofen (Motrin -) 400 mg PO Q8H PRN PRN Reason: PAIN LEVEL 1-5 Last Admin: 04/22/19 09:39 Dose: 400 mg Ondansetron HCl (Zofran Injection) 4 mg IVPUSH Q6H PRN PRN Reason: NAUSEA Last Admin: 04/19/19 23:27 Dose: 4 mg Senna (Senna -) 2 tab PO HS PRN PRN Reason: CONSTIPATION - Objective Vital Signs: Vital Signs Temperature 98.4 F 04/22/19 05:00 Pulse Rate 77 04/22/19 05:00 Respiratory Rate 19 04/22/19 05:00 Blood Pressure 133/77 04/22/19 05:00 O2 Sat by Pulse Oximetry (%) 99 04/22/19 05:00 Constitutional: Yes: No Distress Eyes: Yes: Conjunctiva Clear Cardiovascular: Yes: Regular Rate and Rhythm, S1, S2 Respiratory: Yes: CTA Bilaterally Gastrointestinal: Yes: Normal Bowel Sounds, Soft. No: Tenderness Extremities: Yes: Other (DECREASED SWELLING/ ERYTHEMA R 3RD DIGIT) Labs: CBC, BMP 04/22/19 07:15 04/22/19 07:15 Assessment/Plan CELLULITIS R 3RD DIGIT S/P DOG BITE IMPROVED S/P I&D ST ABSCESS NO EVIDENCE OF FLEXOR TENOSYNOVITIS PER ORTHO SUBSTITUTE PO AUGMENTIN 875MG BID X10D OUTPATIENT ORTHO F/U
[2019-04-22] MEDS ORDERED: AMPICILLIN NA/SULBACTAM NA 3 GM VIAL ONE (11:42)
[2019-04-22] MEDS ORDERED: SODIUM CHLORIDE 100 ML IVPB ONE (11:43)
--- NOTE | 2019-04-22 13:29 | DS ---
Physical Exam: SUBJECTIVE: Patient seen and examined at bedside. Finger feels better, less swelling, better flexion. Has not noticed any pus or drainage. OBJECTIVE: Vital Signs Period Temp Pulse Resp BP Sys/Quiñonez Pulse Ox Last 24 Hr 98.4 F-98.5 F 61-77 17-19 123-137/65-77 96-100 PHYSICAL EXAM GENERAL: The patient is awake, alert, and fully oriented, in no acute distress. RIGHT MIDDLE FINGER: Circumferential swelling improved, no drainage Laboratory Results - last 24 hr 04/22/19 04/22/19 07:15 07:15 WBC 5.7 RBC 4.12 Hgb 12.8 Hct 37.9 MCV 92.1 MCH 31.2 MCHC 33.8 RDW 11.8 Plt Count 281 MPV 8.6 Absolute Neuts (auto) 2.8 Neutrophils % 50.2 Lymphocytes % 40.1 H Monocytes % 6.7 Eosinophils % 2.0 Basophils % 1.0 Sodium 140 Potassium 4.1 Chloride 103 Carbon Dioxide 27 Anion Gap 10 BUN 11.0 Creatinine 0.4 L Est GFR (CKD-EPI)AfAm 134.00 Est GFR (CKD-EPI)NonAf 115.62 Random Glucose 89 Calcium 9.4 Magnesium 2.0 Total Bilirubin 1.0 AST 16 ALT 9 L Alkaline Phosphatase 45 D Total Protein 6.1 L Albumin 3.5 HOSPITAL COURSE: Date of Admission:04/19/19 Date of Discharge: 04/22/19 Pre hospital course 58 year-old female with a PMH significant for HLD, presented to the ED for evaluation of left-hand pain and swelling. The day before patient was bitten by her own dog on the left 2nd and 3rd fingers. She self treated with neosporin ointment. On the day of presentation to the ED she had increased pain and swelling and she was unable to passively flex the finger. On ED exam, small puncture wounds were observed over the dorsal and ventral surfaces. The 3rd finger was tense and swollen with limited mobility. Patient denied fever, chills , rashes or pruritus. ED course: (1) IV Unasyn (2) Vanc (3) surgery/hand consult Subsequent hospital course Cellulitis right middle finger s/p dog bite --bit by own dog, up to date on vaccinations --afebrile, no leukocytosis --continued Unasyn x 3 days; discharged on augmentin --followed by surgery; will follow up with Dr. Mane on 04/26 --pain was well-managed with PO meds; Tylenol on discharge PRN Minutes to complete discharge: 35 Discharge Summary Reason For Visit: CELLULITIS FINGER OF RIGHT HAND Current Active Problems Cellulitis of left hand (Acute) Hypercholesteremia (Acute) Prophylactic measure (Acute) Condition: Stable - Instructions Diet, Activity, Other Instructions: You have an appointment to follow up with Dr. Mane on April 26 at 10: 00am. A prescription has been sent to your pharmacy for Augmentin which is an antibiotic. Take this medication as directed and be sure to FINISH all the medication. Return to the emergency department for any new or worsening symptoms. Referrals: Jericho Mane MD [Staff Physician] - 04/26/19 10:00 am Disposition: HOME - Home Medications Comprehensive Discharge Medication List: Ambulatory Orders Atorvastatin Ca [Lipitor] 10 mg PO HS 04/19/19 Amoxicillin/Potassium Clav [Augmentin 875-125 Tablet] 1 each PO BID #20 tablet 04/22/19 This patient is new to me today: No Emergency Visit: Yes ED Registration Date: 04/19/19 Care time: The patient presented to the Emergency Department on the above date and was hospitalized for further evaluation of their emergent condition. Critical Care patient: No - Discharge Referral Referred to [facility] No
[2019-04-22 14:28] VITALS: BP 118/69; PULSE 89; TEMP 98.8
== END 2019-04-22 14:28 | disposition home or self-care (01) | DRG 605 ==
LOC: FER 13:50 → FM/S 16:51 → UNDOADMIN 17:31
PROVIDERS: ADMIT Internal Medicine; ATTEND Nurse Practitioner Acute Care
PROC: 2W3EX1Z Immobilization of Right Hand using Splint (ICD-10-PCS; 2019-04-19)
PROC: 0H9FXZZ Drainage of Right Hand Skin, External Approach (ICD-10-PCS; principal; 2019-04-22)
DX: S61.250A Open bite of right index finger without damage to nail, initial encounter (principal); S61.252A Open bite of right middle finger without damage to nail, initial encounter; L03.011 Cellulitis of right finger; W54.0XXA Bitten by dog, initial encounter; Y93.89 Activity, other specified; Y92.018 Other place in single-family (private) house as the place of occurrence of the external cause; Y99.8 Other external cause status; E78.00 Pure hypercholesterolemia, unspecified; K59.00 Constipation, unspecified
CPT/HCPCS: 36415; 73130-TC-RT-FY; 80048; 80053; 83735; 85025; 85027; 87040; 99282-25

== ENCOUNTER 2023-12-14 09:25 | Day surgery (SDC) | payer OTHER ==
[2023-12-09 10:34] VITALS: BMI 21.2
[2023-12-14 09:49] VITALS: RESP 20
[2023-12-14] MEDS ORDERED: PROPOFOL 120 ML ONE (10:58)
[2023-12-14 11:24] VITALS: TEMP 97.9
[2023-12-14 11:41] VITALS: BP 129/60; PULSE 73
== END 2023-12-14 11:45 | disposition home or self-care (01) ==
LOC: FASU-ENDO 09:25
PROVIDERS: ATTEND Internal Medicine Gastroenterology
PROC: 0DJD8ZZ Inspection of Lower Intestinal Tract, Via Natural or Artificial Opening Endoscopic (ICD-10-PCS; principal; 2023-12-14 10:52)
DX: Z12.11 Encounter for screening for malignant neoplasm of colon (principal); K57.30 Diverticulosis of large intestine without perforation or abscess without bleeding; Z86.010 Personal history of colon polyps

== ENCOUNTER 2024-04-12 12:56 | Emergency (ER) | payer OTHER ==
[2024-04-12 14:00] VITALS: BP 141/68; PULSE 65; RESP 18; TEMP 98.2; BMI 19.8
== END 2024-04-12 17:01 | disposition home or self-care (01) ==
LOC: FER 12:56
PROC: 2W3CX1Z Immobilization of Right Lower Arm using Splint (ICD-10-PCS; principal; 2024-04-12)
DX: S52.502A Unspecified fracture of the lower end of left radius, initial encounter for closed fracture (principal); S52.614A Nondisplaced fracture of right ulna styloid process, initial encounter for closed fracture; R51.9 Headache, unspecified; W01.0XXA Fall on same level from slipping, tripping and stumbling without subsequent striking against object, initial encounter; Y92.481 Parking lot as the place of occurrence of the external cause
CPT/HCPCS: 70450-TC; 73110-TC-RT-FY; 73130-TC-RT-FY; 99284-25

== ENCOUNTER 2024-04-15 09:35 | Day surgery (SDC) | payer OTHER ==
[2024-04-13 16:00] VITALS: BMI 20.6
[2024-04-15] MEDS ORDERED: BUPIVACAINE HCL/PF 0.5% (5 MG/ML) 30 ML VIAL IJ ONE (11:48)
[2024-04-15] MEDS ORDERED: DEXAMETHASONE SOD PHOSPHATE 10 MG/1 ML VIAL ONE (11:49)
[2024-04-15] MEDS ORDERED: MIDAZOLAM HCL 2 MG/2 ML SINGLE DOSE VIAL ONE (11:49)
[2024-04-15] MEDS ORDERED: GUM MASTIC/STORAX/MSAL/ALCOHOL 1 DRP DROPSBTL MC ONE (11:56)
[2024-04-15] MEDS ORDERED: PROPOFOL 20 ML ONE ×2 (12:06→12:59)
[2024-04-15] MEDS ORDERED: ONDANSETRON 4 MG/2 ML VIAL ONE (12:28)
[2024-04-15] MEDS ORDERED: DEXAMETHASONE SOD PHOSPHATE 4 MG/1 ML VIAL ONE (12:28)
[2024-04-15] MEDS ORDERED: ceFAZolin SODIUM 1 GM VIAL ONE (12:30)
[2024-04-15] MEDS ORDERED: ONDANSETRON 4 MG/2 ML VIAL IVPUSH PRN (13:28)
[2024-04-15] MEDS ORDERED: oxyCODONE HCL 5 MG TABLET PO PRN (13:28)
[2024-04-15] MEDS ORDERED: LACTATED RINGERS SOLUTION 1,000 ML IV SCH (13:30)
[2024-04-15 15:30] VITALS: TEMP 97.5
[2024-04-15 16:17] VITALS: BP 128/68; PULSE 62; RESP 18
== END 2024-04-15 15:00 | disposition home or self-care (01) ==
LOC: FASU 09:35
PROVIDERS: ATTEND Orthopaedic Surgery
PROC: 0PSH04Z Reposition Right Radius with Internal Fixation Device, Open Approach (ICD-10-PCS; principal; 2024-04-15 12:35)
DX: S52.531A Colles' fracture of right radius, initial encounter for closed fracture (principal); X58.XXXA Exposure to other specified factors, initial encounter; Y93.9 Activity, unspecified; Y92.9 Unspecified place or not applicable
CPT/HCPCS: 25609; C1713; 73130-TC-RT-FY; 94760; J1100